=== PATIENT | female | born 1960 | race Caucasian/White ===

== ENCOUNTER 2021-10-15 09:49 | Emergency (ER) | payer BC ==
[2021-10-15 10:09] VITALS: BP 153/88; PULSE 84
== END 2021-10-15 11:00 | disposition home or self-care (01) ==
LOC: JP.ED 09:49
DX: S40.012A Contusion of left shoulder, initial encounter (principal); K21.9 Gastro-esophageal reflux disease without esophagitis; Z88.0 Allergy status to penicillin; Z88.1 Allergy status to other antibiotic agents; Z79.899 Other long term (current) drug therapy; W01.0XXA Fall on same level from slipping, tripping and stumbling without subsequent striking against object, initial encounter
CPT/HCPCS: 73030-26-LT; 73030-LT; 99283-25